=== PATIENT | female | born 1980 | race Hispanic/Latino ===

== ENCOUNTER 2017-09-16 17:30 | Emergency (ER) | payer SELFPAY ==
[~2017-09-16 17:30] MED LIST: ISOVUE-370 76%-LOCM 1 ML ONE
[2017-09-16] MEDS ORDERED: Ondansetron ODT 4 MG TAB ONE (18:20)
[2017-09-16 18:28] LABS: Mean Corpuscular HGB CONC 34.4 g/dL (32.0-36.0); Mean Corpuscular Hemoglobin 29.3 pg (27.0-31.0); Mean Corpuscular Volume 85.2 fl (81.0-99.0); Mean Platelet Volume 6.9 fL (7.4-10.4); Platelet Count 326 thou/uL (130-400); RBC Distribution Width 11.6 % (11.5-14.5); Red Blood Cell (RBC) Count 4.43 mill/uL (4.20-5.40); White Blood Cell (WBC) Count 19.9 thou/uL (4.8-10.8)
[2017-09-16 18:46] LABS: Band 12 % (5-11); Lymphocytes 5 % (21-51); MDiff Complete? YES; Monocytes 1 % (0-10); Neutrophil 81 % (42-75); PLT Morphology Comment Appears Adequate; Reactive Lymphocytes 1 % (0-10)
[2017-09-16 18:48] LABS: ALT (SGPT) 12 U/L (8-55); AST (SGOT) 15 U/L (5-34); Albumin 4.3 g/dL (3.5-5.0); Alkaline Phosphatase 76 U/L (40-150); Anion Gap 15 mmol/L (10-20); BUN (Urea Nitrogen) 14 mg/dL (7.0-18.7); Bilirubin, Total 0.7 mg/dL (0.2-1.2); Calc. Creatinine Clearance 0 mL/min (70-130); Calcium 9.4 mg/dL (7.8-10.44); Carbon Dioxide 21 mmol/L (22-29); Chloride 105 mmol/L (98-107); Estimated GFR-MDRD Greater than 90; Globulin 3.4 g/dL (2.4-3.5); Glucose 110 mg/dL (70-105); Potassium 3.9 mmol/L (3.5-5.1); Protein, Total 7.7 g/dL (6.0-8.3); Sodium 137 mmol/L (136-145)
[2017-09-16 19:42] LABS: Bilirubin Negative (Negative); Blood, Urine Negative (Negative); Clarity CLEAR (Clear); Glucose, Urine (Dipstick) Negative (Negative); Leukocyte Moderate (Negative); Nitrite Negative (Negative); Protein, Urine (Dipstick) Negative (Neg-Trace); Urobilinogen 0.2 mg/dL (0.2-1.0)
[2017-09-16 19:44] LABS: Bacteria/HPF None Seen HPF (None Seen); Hyaline Casts/LPF 0-3 HYALINE CAST LPF (0-3 Hyaline); Pathc Cast-AUWi Flag 0.43 (0-2.49)
[2017-09-16 19:59] LABS: RBC/HPF None Seen HPF (0-3)
[2017-09-16 21:14] LABS: Pregnancy Test - Urine (BHCG) Negative (Negative); Pregu Control Background? CLEAR/WHITE (CLR/WHITE); Pregu Control Bar Appear? YES (CONTROL BAR)
--- NOTE | 2017-09-16 22:11 | CT ---
ABDOMEN CT WITH CONTRAST PELVIC CT WITH CONTRAST 09/16/17 COMPARISON: 10/27/11. TECHNIQUE: An abdomen and pelvic CT are performed with IV contrast. Enteric contrast was not administered. Coron al reformatted images are submitted for interpretation. HISTORY: Abdominal pain. Fever. Diarrhea. FINDINGS: ABDOMEN CT: Scar and atelectasis in the lung bases. Heart size is normal. No pericardial effusion. The visualized aorta has a normal caliber. No periaortic fat stranding. Symmetric attenuation of the psoas muscles. Intra and extrahepatic portal vein is patent. Unremarkable gallbladder. Liver, spleen, pancreas and adrenal glands have appropriate enhancement. No gastrohepatic or retrocru ral lymphadenopathy. There are mildly enlarged periportal lymph nodes. Farm Agent lymph node alan ures 1.4 cm in maximum dimension. There is enlarged right lower quadrant mesenteric lymph nodes. Repr esent lymph node measures 1.9 cm in maximum dimension. No mesenteric mass, free air or free fluid. Sy mmetric enhancement of the kidneys. Bilaterally, no obstructive uropathy. Limited evaluation of the a limentary canal due to the lack of oral contrast. Gastric mucosal, duodenum and multiple normal calib er small bowel loops are noted. Ileocecal junction is normal. Normal caliber appendix. Unremarkable c olon. PELVIC CT: Heterogeneous enhancement of the uterus. There is heterogeneous enhancement of the adnexal structures . In the right adnexa, there appears to be a centrally hypodense, peripherally enhancing lesion which may represent an ovarian dominant follicle measuring 1.8 cm. There is a small amount of free fluid i n the pelvis. No mass, lymphadenopathy, or free air. Urinary bladder is unremarkable. IMPRESSION: 1. Mild enhancement of the uterus and adnexal structures. Correlate for pelvic inflammatory dise ase. There is a dominant follicle in the right ovary. 2. Enlarged mesenteric and periportal lymph nodes, nonspecific. Correlate for mesenteric lymphad enitis. POS: [facility]
[2017-09-18 12:26] LABS: Chlamydia by PCR Not Detected (NotDetected); GC by PCR Not Detected (NotDetected)
== END 2017-09-16 22:41 | disposition home or self-care (01) ==
LOC: ERS 17:30
DX: R11.10 Vomiting, unspecified (principal); R19.7 Diarrhea, unspecified; E11.9 Type 2 diabetes mellitus without complications; J45.909 Unspecified asthma, uncomplicated; F32.9 Major depressive disorder, single episode, unspecified; Z79.84 Long term (current) use of oral hypoglycemic drugs; Z79.899 Other long term (current) drug therapy
CPT/HCPCS: 36416; 74177; 80053; 81003; 81015; 81025; 85025; 87480; 87491; 87510; 87591; 87660; 93005; 96360; 96361; Q0162

== ENCOUNTER 2020-02-19 12:55 | Emergency (ER) | payer SELFPAY ==
[2020-02-19] MEDS ORDERED: Ibuprofen 800 MG TAB ONE (13:43)
[2020-02-19] MEDS ORDERED: Acetaminophen 500 MG TAB ONE (13:43)
--- NOTE | 2020-02-19 14:06 | RAD ---
XR Chest 1 View Portable HISTORY: Cough COMPARISON: 10/04/2016 FINDINGS: The heart size is normal. The lungs are well expanded without focal areas of consolidation, pneumothorax or pleural effusions. IMPRESSION: No radiographic evidence of acute cardiopulmonary process.
[2020-02-19] MEDS ORDERED: Albuterol 200 PUFF (6.7GM INHALER) ONE (14:58)
[2020-02-20 15:30] LABS: SARS-CoV-2 MS2 Positive; SARS-CoV-2 N Gene Positive; SARS-CoV-2 S Gene Positive; SARS-CoV-2 by NAA DETECTED (NotDetected); SARS-CoV-2 orf1ab Positive
== END 2020-02-19 15:40 | disposition home or self-care (01) ==
LOC: ERS 12:55
DX: U07.1 COVID-19 (principal); J45.909 Unspecified asthma, uncomplicated; E11.9 Type 2 diabetes mellitus without complications; F32.9 Major depressive disorder, single episode, unspecified; Z79.84 Long term (current) use of oral hypoglycemic drugs
CPT/HCPCS: 71045; 87635; 87804; U0003